=== PATIENT | female | born 1990 | race Caucasian/White ===

== ENCOUNTER 2020-03-30 05:47 | Inpatient (IN) ==
[2020-03-30] MEDS ORDERED: LACTATED RINGERS 500 ML IV PRN (05:58)
[2020-03-30] MEDS ORDERED: ONDANSETRON 4 MG/2 ML VIAL IV PRN (05:58)
[2020-03-30] MEDS ORDERED: LACTATED RINGERS 1,000 ML IV ONE ×2 (05:58→07:18)
[2020-03-30] MEDS ORDERED: BUTORPHANOL 2 MG/ML VIAL IV PRN (05:58)
[2020-03-30] MEDS ORDERED: LACTATED RINGERS 1,000 ML IV SCH (06:00)
[2020-03-30] MEDS ORDERED: OXYTOCIN/LR 20 UNIT/1,000 ML BAG IV SCH (06:00)
[2020-03-30 06:29] LABS: Basophils % 0.3 % (0.0-0.8); Eosinophils # 0.1 10*3/uL (0.0-0.87); Eosinophils % 0.8 % (0.00-10.9); Hematocrit 32.7 VOL% (35.7-47.0); Hemoglobin 10.8 GM/DL (12.0-16.0); Immature Granulocytes % 0.6 %; Immature Granulocytes Absolute 0.05 #; Lymphocytes # 1.8 10*3/uL (1.4-4.0); Lymphocytes % 20.5 % (21.3-54.2); Mean Corpuscular Volume 86.3 FL (87-102); Mean Platelet Volume 10.5 FL (9.6-12.0); Monocytes % 7.4 % (1.7-12.7); Neutrophils % 70.4 % (38.7-73.9); Platelet Count 244 T/CUMM (130-400); Red Blood Count 3.79 MC/CUMM (3.8-5.5); Red Cell Distribution Width 12.9 % (9.3-17.3); White Blood Count 8.6 T/CUMM (4-12)
[2020-03-30] MEDS: CLINDAMYCIN INJ 900 MG in PREMIX 1 EACH IV SCH ×2 (06:36→14:09)
[2020-03-30 06:55] LABS: Albumin 2.5 G/DL (3.4-5.0); Bilirubin,Total 0.4 MG/DL (0.2-1.0); Osmolality,Calculated 267.1 MOS/KG (273-304); Potassium 3.9 MMOL/L (3.5-5.1); Total Protein 7.2 G/DL (6.4-8.3)
[2020-03-30] MEDS ORDERED: hydrOXYzine HCL 25 MG/1 ML VIAL IM PRN (07:18)
[2020-03-30] MEDS ORDERED: ePHEDrine 50 MG/ML VIAL IV PRN (07:18)
[2020-03-30] MEDS ORDERED: diphenhydrAMINE 50 MG/1 ML VIAL IV PRN ×2 (07:18)
[2020-03-30] MEDS ORDERED: FAMOTIDINE 20 MG/2 ML VIAL IV ONE (07:18)
[2020-03-30] MEDS ORDERED: PROMETHAZINE 25 MG/1 ML VIAL IM ONE (07:18)
[2020-03-30] MEDS ORDERED: NALOXONE 0.4 MG/ML VIAL IV PRN (07:18)
[2020-03-30] MEDS ORDERED: CITRIC ACID/SODIUM CITRATE 30 ML UDCUP PO ONE (07:18)
[2020-03-30] MEDS ORDERED: ONDANSETRON 4 MG/2 ML VIAL IV ONE (07:18)
[2020-03-30] MEDS ORDERED: fentaNYL 2 MCG/ROPIV 0.2% EPID 100 ML EPIDURAL SCH (07:30)
[2020-03-30 13:48] LABS: Bilirubin,Urine Negative (Negative); Blood, Urine Negative (Negative); Glucose,Urine (UA) Negative (Negative); Ketones,Urine Negative (Negative); Mucus,Urine Occasional /LPF (Occasional); Nitrite,Urine Negative (Negative); Protein,Urine Negative; Squamous Epithelial Cell,Urine Occasional /HPF (0-10); Urine Appearance CLEAR (Clear); Urine Color Straw (Yellow); Urine Specific Gravity 1.009 (1.001-1.035); Urine Urobilinogen < 2.0 EU/DL (0.2-1.0); WBC,Urine <1 /HPF (0-6)
[2020-03-30] MEDS ORDERED: METHYLERGONOVINE 0.2 MG/1 ML AMP ONE (16:04)
[2020-03-30] MEDS ORDERED: miSOPROStoL 200 MCG TABLET ONE (16:04)
[2020-03-30] MEDS ORDERED: TRANEXAMIC ACID 1,000 MG/10 ML VIAL ONE (16:04)
[2020-03-30] MEDS ORDERED: CARBOPROST TROMETHAMINE 250 MCG/ML AMP IM ONE (16:04)
[2020-03-30 16:41] LABS: Cord Arterial Blood HCO3 18.1 MMOL/L
[2020-03-30 16:42] LABS: Cord Venous Blood HCO3 23.9 MMOL/L; Cord Venous Blood PCO2 40.6 MMHG; Cord Venous Blood PO2 35.1 MMHG
[2020-03-30] MEDS: IBUPROFEN 800 MG TABLET PO PRN (22:19)
[2020-03-31 06:22] LABS: Basophils % 0.3 % (0.0-0.8); Eosinophils # 0.1 10*3/uL (0.0-0.87); Eosinophils % 0.8 % (0.00-10.9); Hematocrit 30.3 VOL% (35.7-47.0); Hemoglobin 9.8 GM/DL (12.0-16.0); Immature Granulocytes % 0.5 %; Immature Granulocytes Absolute 0.06 #; Lymphocytes # 1.9 10*3/uL (1.4-4.0); Lymphocytes % 17.3 % (21.3-54.2); Mean Corpuscular HGB Conc 32.3 GM/DL (32-36); Mean Corpuscular Volume 86.8 FL (87-102); Mean Platelet Volume 10.7 FL (9.6-12.0); Monocytes % 7.9 % (1.7-12.7); Neutrophils % 73.2 % (38.7-73.9); Platelet Count 194 T/CUMM (130-400); Red Blood Count 3.49 MC/CUMM (3.8-5.5)
[2020-03-31] MEDS: IBUPROFEN 800 MG TABLET PO PRN ×2 (08:55→20:15)
[2020-03-31] MEDS ORDERED: ACETAMINOPHEN/CODEINE 300-30 MG TABLET PO PRN (09:01)
[2020-03-31] MEDS: DOCUSATE SODIUM 100 MG CAPSULE PO SCH ×2 (10:43→20:15)
[2020-03-31] MEDS: FERROUS SULFATE 325 MG TABLET PO SCH ×2 (10:43→20:15)
[2020-04-01 07:27] VITALS: BP 122/89
[2020-04-01] MEDS: DOCUSATE SODIUM 100 MG CAPSULE PO SCH (08:39)
[2020-04-01] MEDS: FERROUS SULFATE 325 MG TABLET PO SCH (08:39)
== END 2020-04-01 12:15 | disposition home or self-care (01) | DRG 807 ==
LOC: N.LD 05:47 → N.OB 23:29
PROVIDERS: ADMIT Obstetrics & Gynecology; ATTEND Obstetrics & Gynecology